=== PATIENT | female | born 1970 | race Two or more races ===

== ENCOUNTER → 2017-12-05 | Outpatient (CLI) | payer OTHER | END | disposition home or self-care (01) | LOC: KCIC MAMMO 11:12 | DX: Z12.31 Encounter for screening mammogram for malignant neoplasm of breast (principal); N63.10 Unspecified lump in the right breast, unspecified quadrant; Z80.3 Family history of malignant neoplasm of breast | CPT/HCPCS: 77067 ==

== ENCOUNTER → 2017-12-15 | Outpatient (CLI) | payer OTHER | END | disposition home or self-care (01) | LOC: US 09:05 | DX: N63.10 Unspecified lump in the right breast, unspecified quadrant (principal) | CPT/HCPCS: 76641 ==

== ENCOUNTER → 2018-07-17 | Outpatient (CLI) | payer OTHER ==
--- NOTE | 2018-07-17 15:02 | KCIC ---
PA and lateral chest x-ray without comparison for bronchitis for 2 1/2 weeks, left upper lung pain with deep breathing. FINDINGS: There is a focal area of pneumonic infiltrate within the superior segment of the right lower lobe concerning for pneumonia. Remaining lung mei are clear. Cardiomediastinum is grossly unremarkable. IMPRESSION: 1. Geographic airspace infiltrate corresponding the superior segment of the right lower lobe, concerning for pneumonia. Electronically signed by: Jose E Chatterjee MD (07/17/2018 2:59 PM) [id number]
== END | disposition home or self-care (01) ==
LOC: KCIC 11:29
PROVIDERS: ATTEND Family Medicine
DX: J20.9 Acute bronchitis, unspecified (principal); R91.8 Other nonspecific abnormal finding of lung field
CPT/HCPCS: 71046

== ENCOUNTER → 2019-03-28 | Outpatient (CLI) | payer OTHER ==
--- NOTE | 2019-03-28 13:35 | KCIC ---
Bilateral diagnostic digital mammograms: Reason for examination: Follow-up nodules. Comparison is made to previous studies dated 12/05/2017 and 06/08/2010. Interpretation was made with the benefit of CAD. The skin and nipples show no abnormalities. No abnormal axillary lymph nodes are seen. The breast parenchyma is heterogeneously dense. (Breast density: Category C.) There continues to be asymmetric density in the right breast which is similar to previous examinations. There are no new dominant masses, suspicious calcifications or architectural distortion. Impression: Dense parenchymal asymmetry in the right breast which is similar to previous examinations. Ultrasound to follow. Your patient's mammogram demonstrates that she has dense breast tissue (breast density category C or D), which could hide abnormalities, and if she has other risk factors for breast cancer that have been identified, she might benefit from supplemental screening tests that may be suggested by you as her ordering physician. Dense breast tissue, in and of itself, is a relatively common condition. Therefore, this information is not provided to cause undue concern, but rather to raise your awareness and to promote discussion with your patient regarding the presence of other risk factors, in addition to dense breast tissue. Your patient's mammography results will be sent to her. BI-RAD Category 0: Incomplete. Needs additional imaging evaluation. Right breast ultrasound: Comparison is made to previous study dated 12/15/2017. Right whole breast ultrasound including evaluation of all 4 quadrants and the retroareolar and axillary regions of the right breast was performed. There continues to be some fibrocystic change at the 1:00 position 3 cm from the nipple but resolution of the cyst seen previously within this tissue. In the 3:00 position 4 cm from the nipple, there continues to be a small 7.7 mm fibrocystic lesion. In the 9:00 position 5 cm from the nipple, there continues to be a small 7.6 mm cystic lesion which has shown a decrease in size. In the 10:00 position 6 cm from the nipple, there continues to be a patch of fibrocystic-type change with a new 7.5 mm hypoechoic cystic-appearing structure within the tissue. No grossly suspicious lesions are seen in the right breast. No abnormal appearing lymph nodes are seen in the axilla. IMPRESSION: Continued presence of benign-appearing cystic and fibrocystic changes in the right breast. No suspicious lesions are seen. Recommend 6 month follow-up with ultrasound. BI-RADS Category 3: Probably Benign. "Our facility is accredited by the [employer] Mammography Program." This patient's information has been entered into a reminder system for the patient to be notified with the results of her examination and a target date for the next mammogram. Electronically signed by: Lupe Cowan MD (03/28/2019 1:32 PM) [id number]
== END | disposition home or self-care (01) ==
LOC: KCIC MAMMO 07:35
PROVIDERS: ATTEND Nurse Practitioner Family
DX: N64.89 Other specified disorders of breast (principal)
CPT/HCPCS: 76641; 77066

== ENCOUNTER → 2019-04-10 | Outpatient (CLI) | payer OTHER ==
--- NOTE | 2019-04-10 15:12 | KCIC ---
Indication:Right foot pain for 3 months. No known injury. TECHNIQUE: 3 views of the right foot COMPARISON:None FINDINGS/ impression: No acute fracture or dislocation. No significant arthritic process. No soft tissue abnormality. Electronically signed by: Amos Braden DO (04/10/2019 3:10 PM) [facility]
== END | disposition home or self-care (01) ==
LOC: KCIC 11:01
PROVIDERS: ATTEND Family Medicine
DX: M79.671 Pain in right foot (principal)
CPT/HCPCS: 73630

== ENCOUNTER → 2019-04-23 | Outpatient (CLI) | payer OTHER ==
--- NOTE | 2019-04-23 15:16 | KCIC ---
Exam performed: CT right foot. HISTORY: Right foot pain and difficulty walking for 3 months. DATE OF SERVICE: 04/23/2019. COMPARISON: None available technique: Contiguous helical acquisitions are obtained through the right foot without IV contrast. Sagittal and coronal reformatted images are obtained and reviewed. FINDINGS: The ankle joint, intertarsal and tarsometatarsal joints as well as the metatarsophalangeal joints are preserved. There is no acute fracture, dislocation, bony erosions or periosteal reaction. No obvious fluid collection or mass lesion is identified. IMPRESSION: No definite abnormality noted. PQRS Compliance Statement: One or more of the following individualized dose reduction techniques were utilized for this examination: 1. Automated exposure control 2. Adjustment of the mA and/or kV according to patient size 3. Use of iterative reconstruction technique Electronically signed by: Michaelle Rizo MD (04/23/2019 3:14 PM) [facility]
== END | disposition home or self-care (01) ==
LOC: KCIC CT 12:43
PROVIDERS: ATTEND Family Medicine
DX: M79.671 Pain in right foot (principal); R26.2 Difficulty in walking, not elsewhere classified
CPT/HCPCS: 73700

== ENCOUNTER → 2019-12-10 | Outpatient (CLI) | payer OTHER ==
--- NOTE | 2019-12-10 14:43 | KCIC ---
EXAM: Right breast sonogram. HISTORY: 49-year-old female presents for follow-up evaluation of suspected benign cystic and fibrocystic lesions within the right breast. TECHNIQUE: Sonographic imaging of the right breast including all 4 quadrants and the retroareolar region was performed. COMPARISON: 03/27/2019. FINDINGS: There is a small complex cyst measuring 4 mm at the 9:00 position 5 cm from the nipple. There is a simple appearing cyst measuring 5 mm at the 10:00 position 6 cm from the nipple. There is a complex cyst or benign fibrocystic lesion measuring 5 mm at the 10:00 position 4 cm from the nipple. No new suspicious sonographic lesion is seen. IMPRESSION: 1. Small benign cystic and fibrocystic lesions within the right breast at the 9:00 and 10:00 positions. No new suspicious sonographic finding. 2. BI-RADS Category 2: Benign finding(s). The patient will be due for bilateral mammography in 4 months according to a previously established mammography interval. Electronically signed by: India Mccabe MD (12/10/2019 2:40 PM) [id number]
== END | disposition home or self-care (01) ==
LOC: KCIC US 13:55
PROVIDERS: ATTEND Nurse Practitioner Family
DX: R92.8 Other abnormal and inconclusive findings on diagnostic imaging of breast (principal); N60.11 Diffuse cystic mastopathy of right breast
CPT/HCPCS: 76641

== ENCOUNTER → 2020-04-04 | Outpatient (CLI) | payer OTHER | END | disposition home or self-care (01) | LOC: LAB 20:31 | PROVIDERS: ATTEND Internal Medicine Pulmonary Disease | DX: Z20.828 Contact with and (suspected) exposure to other viral communicable diseases (principal); R51 Headache; K92.89 Other specified diseases of the digestive system; M79.10 Myalgia, unspecified site | CPT/HCPCS: U0003-CS ==

== ENCOUNTER → 2021-09-04 | Outpatient (CLI) | payer OTHER ==
--- NOTE | 2021-09-04 10:21 | KCIC ---
Bilateral digital screening mammograms with 3-D tomosynthesis: Reason for examination: Routine screening. Comparison is made to previous studies dated 03/28/2019 and 12/05/2017. Bilateral mammograms in CC and oblique projections were obtained with 2-D imaging and 3-D tomosynthes is imaging on a Siemens Inspiration unit and reviewed on the workstation. Interpretation was made wit h the benefit of CAD. The skin and nipples show no abnormalities. No abnormal axillary lymph nodes are seen. The breast par enchyma is heterogeneously dense. (Breast density: Category C.) There are no dominant masses, suspici ous calcifications or architectural distortion. Impression: No evidence of malignancy. Recommend routine screening. Your patient's mammogram demonstrates that she has dense breast tissue (breast density category C or D), which could hide abnormalities, and if she has other risk factors for breast cancer that have bee n identified, she might benefit from supplemental screening tests that may be suggested by you as her ordering physician. Dense breast tissue, in and of itself, is a relatively common condition. Therefo re, this information is not provided to cause undue concern, but rather to raise your awareness and t o promote discussion with your patient regarding the presence of other risk factors, in addition to d ense breast tissue. Your patient's mammography results will be sent to her. BI-RAD Category 1: Negative. "Our facility is accredited by the [employer] Mammography Program." This patient's information has been entered into a reminder system for the patient to be notified wit h the results of her examination and a target date for the next mammogram. Electronically signed by: Lupe Cowan MD (09/04/2021 10:19 AM) [email or web address]
== END ==
LOC: KCIC MAMMO 09:15
PROVIDERS: ATTEND Nurse Practitioner Family
DX: Z12.31 Encounter for screening mammogram for malignant neoplasm of breast (principal)
CPT/HCPCS: 77063; 77067

== ENCOUNTER → 2022-02-18 | Outpatient (CLI) | payer OTHER ==
[2022-02-18 10:43] LABS: BASO # 0.1 x10^3/uL (0.0-0.2); BASO % 1 % (0-3); EOS # 0.2 x10^3/uL (0.0-0.7); EOS % 4 % (0-3); HEMATOCRIT 41.8 % (36.0-47.0); HEMOGLOBIN 14.1 g/dL (12.0-15.5); LYMPH # 1.3 x10^3/uL (1.0-4.8); LYMPH % 24 % (24-48); MEAN CORPUSCULAR HEMOGLOBIN 32 pg (25-35); MEAN CORPUSCULAR HGB CONC 34 g/dL (31-37); MEAN CORPUSCULAR VOLUME 93 fL (79-100); MONO # 0.4 x10^3/uL (0.0-1.1); MONO % 7 % (0-9); NEUT # 3.3 x10^3/uL (1.8-7.7); NEUT % 64 % (31-73); PLATELET COUNT 282 x10^3/uL (140-400); RED BLOOD COUNT 4.48 x10^6/uL (3.50-5.40); RED CELL DISTRIBUTION WIDTH 13.4 % (11.5-14.5); WHITE BLOOD COUNT 5.2 x10^3/uL (4.0-11.0)
[2022-02-18 11:01] LABS: ALBUMIN 3.5 g/dL (3.4-5.0); ALBUMIN/GLOBULIN RATIO 0.8 (1.0-1.7); CALCIUM 9.1 mg/dL (8.5-10.1); CREATININE 0.7 mg/dL (0.6-1.0); GFR 87.9; POTASSIUM 4.2 mmol/L (3.5-5.1); TOTAL BILIRUBIN 0.5 mg/dL (0.2-1.0); TOTAL PROTEIN 7.7 g/dL (6.4-8.2)
== END ==
LOC: LAB 10:21
PROVIDERS: ATTEND Nurse Practitioner Family
DX: Z13.228 Encounter for screening for other metabolic disorders (principal); E55.9 Vitamin D deficiency, unspecified; E78.5 Hyperlipidemia, unspecified
CPT/HCPCS: 36415; 80053; 80061; 82306; 85025